=== PATIENT | male | born 1965 | race Caucasian/White ===

== ENCOUNTER 2017-02-14 14:37 | Emergency (ER) | payer OTHER ==
[~2017-02-14] VITALS: Ht 182.9 cm; Wt 97.2 kg
[2017-02-14 15:32] LABS: BASOPHIL % 0.5 % (0-2); PLATELET COUNT 230 x10^3mcL (130-400); RED CELL DISTRIBUTION WIDTH 13.2 % (11.5-14.5)
[2017-02-14 15:38] LABS: CALCIUM 8.6 mg/dL (8.5-10.1); CARBON DIOXIDE 26.2 mmol/L (21-32); CHLORIDE SERUM 104 mmol/L (98-107); GFR1 > 60 mL/min; GLUCOSE SERUM 101 mg/dL (74-106); SODIUM SERUM 141 mmol/L (136-145)
[2017-02-14 15:43] LABS: ALBUMIN 3.7 g/dL (3.4-5.0); ALKALINE PHOSPHATASE 87 U/L (46-116); ALT/SGPT 28 U/L (16-63); AST/SGOT 25 U/L (15-37); BILIRUBIN TOTAL 0.98 mg/dL (0.20-1.00); MAGNESIUM 1.9 mg/dL (1.8-2.4); TOTAL PROTEIN, SERUM 7.1 g/dL (6.4-8.2)
[2017-02-14 16:38] VITALS: BP 140/78
== END 2017-02-14 16:38 | disposition home or self-care (01) ==
LOC: ED 14:37
PROVIDERS: Emergency Medicine
DX: R42 Dizziness and giddiness (principal); R51 Headache; H53.8 Other visual disturbances; R03.0 Elevated blood-pressure reading, without diagnosis of hypertension
CPT/HCPCS: 36415

== ENCOUNTER 2017-11-30 16:03 | Emergency (ER) | payer MEDICAID ==
[~2017-11-30] VITALS: Ht 182.9 cm; Wt 101.2 kg
[2017-11-30 16:11] VITALS: Ht 182.9 cm; Wt 101.2 kg
[2017-11-30 16:49] LABS: BASOPHIL % 0.4 % (0-2); PLATELET COUNT 257 x10^3mcL (130-400); RED CELL DISTRIBUTION WIDTH 13.3 % (11.5-14.5)
[2017-11-30 17:49] LABS: ALKALINE PHOSPHATASE 95 U/L (46-116); ALT/SGPT 40 U/L (16-63); AST/SGOT 25 U/L (15-37); BILIRUBIN TOTAL 1.22 mg/dL (0.20-1.00); CALCIUM 9.1 mg/dL (8.5-10.1); CARBON DIOXIDE 28.5 mmol/L (21-32); CHLORIDE SERUM 103 mmol/L (98-107); CREATININE SERUM 0.9 mg/dL (0.7-1.3); GFR1 > 60 mL/min; GLUCOSE SERUM 109 mg/dL (74-106); POTASSIUM SERUM 3.7 mmol/L (3.5-5.1); SODIUM SERUM 136 mmol/L (136-145); TOTAL PROTEIN, SERUM 7.1 g/dL (6.4-8.2)
[2017-11-30 18:16] VITALS: BP 128/92
== END 2017-11-30 18:17 | disposition home or self-care (01) ==
LOC: ED 16:03
PROVIDERS: Emergency Medicine
DX: G45.9 Transient cerebral ischemic attack, unspecified (principal); E78.00 Pure hypercholesterolemia, unspecified
CPT/HCPCS: 36415; J1885

== ENCOUNTER 2019-01-20 17:17 | Emergency (ER) | payer OTHER ==
[~2019-01-20] VITALS: Ht 182.9 cm; Wt 99.8 kg
[2019-01-20 17:32] VITALS: BP 156/88; Ht 182.9 cm; Wt 99.8 kg
== END 2019-01-20 20:36 | disposition left against medical advice (07) ==
LOC: ED 17:17
DX: Z53.21 Procedure and treatment not carried out due to patient leaving prior to being seen by health care provider (principal)

== ENCOUNTER 2019-01-21 23:54 | Emergency (ER) | payer OTHER ==
[~2019-01-21] VITALS: Ht 182.9 cm; Wt 100.2 kg
[2019-01-22 00:01] VITALS: Ht 182.9 cm; Wt 100.2 kg
[2019-01-22 00:45] VITALS: BP 127/95
== END 2019-01-22 00:45 | disposition home or self-care (01) ==
LOC: ED 23:54
DX: M70.62 Trochanteric bursitis, left hip (principal); M70.61 Trochanteric bursitis, right hip; Y93.89 Activity, other specified; M54.30 Sciatica, unspecified side
CPT/HCPCS: J1885

== ENCOUNTER 2019-07-15 08:14 | Emergency (ER) | payer OTHER ==
[~2019-07-15] VITALS: Ht 170.2 cm; Wt 101.2 kg
[2019-07-15 08:20] VITALS: BP 139/93; Ht 170.2 cm; Wt 101.2 kg
== END 2019-07-15 09:05 | disposition home or self-care (01) ==
LOC: ED 08:14
DX: M54.42 Lumbago with sciatica, left side (principal)
CPT/HCPCS: 82962; J1885

== ENCOUNTER 2020-01-10 10:31 | Emergency (ER) | payer OTHER ==
[~2020-01-10] VITALS: Ht 182.9 cm; Wt 98.4 kg
[2020-01-10 10:36] VITALS: Ht 182.9 cm; Wt 98.4 kg
[2020-01-10 11:49] VITALS: BP 129/80
== END 2020-01-10 11:49 | disposition short-term general hospital (02) ==
LOC: ED 10:31
DX: T15.81XA Foreign body in other and multiple parts of external eye, right eye, initial encounter (principal); W45.8XXA Other foreign body or object entering through skin, initial encounter; Y93.89 Activity, other specified; Y92.89 Other specified places as the place of occurrence of the external cause; Y99.8 Other external cause status
CPT/HCPCS: 90715